=== PATIENT | female | born 1960 | race Caucasian/White ===

== ENCOUNTER 2016-10-31 16:03 | Emergency (ER) | payer MEDICARE ==
[~2016-10-31] VITALS: Ht 165.1 cm; Wt 66.2 kg
[~2016-10-31 16:03] MED LIST: DULO20CA45 PO; KETO10TA PO; OMEP-110 PO; OXYC-307 PO; PRED10TA PO; cymbalta PO; flexeril PO; percocet PO
[2016-10-31 16:11] VITALS: BP 159/79
[2016-10-31] MEDS ORDERED: KETOROLAC 30 MG/1 ML IM ONE (16:30)
[2016-10-31] MEDS ORDERED: HYDROcodone/APAP 5/325 TABLET ONE (17:26)
[2016-10-31] MEDS ORDERED: KETOROLAC 30 MG/1 ML ONE (17:27)
[2016-10-31] MEDS ORDERED: HYDROcodone/APAP 5/325 TABLET PO ONE (17:30)
== END 2016-10-31 18:49 | disposition home or self-care (01) ==
LOC: ED 18:35
DX: M54.5 Low back pain (principal); G89.29 Other chronic pain; Z88.0 Allergy status to penicillin
CPT/HCPCS: 96372; 99283; J1885